=== PATIENT | male | born 1980 | race Caucasian/White ===

== ENCOUNTER 2016-09-29 23:28 | Emergency (ER) | payer SELFPAY ==
[2016-09-30 02:31] LABS: APPEARANCE CLEAR (CLEAR); BILIRUBIN NEGATIVE (NEGATIVE); COLOR YELLOW (YELLOW); GLUCOSE NEGATIVE (NEGATIVE); KETONE NEGATIVE (NEGATIVE); LEUKOCYTE ESTERASE NEGATIVE (NEGATIVE); NITRITE NEGATIVE (NEGATIVE); PROTEIN NEGATIVE (NEGATIVE); SPECIFIC GRAVITY 1.005 (1.005-1.020); UROBILINOGEN NORMAL (NORMAL)
== END 2016-09-30 02:15 | disposition home or self-care (01) ==
LOC: D.ER 23:28
PROVIDERS: Physician Assistant Medical
DX: S20.419A Abrasion of unspecified back wall of thorax, initial encounter (principal); S40.812A Abrasion of left upper arm, initial encounter; S50.312A Abrasion of left elbow, initial encounter; S90.812A Abrasion, left foot, initial encounter; S80.812A Abrasion, left lower leg, initial encounter; V89.2XXA Person injured in unspecified motor-vehicle accident, traffic, initial encounter; Y93.89 Activity, other specified; Y92.89 Other specified places as the place of occurrence of the external cause

== ENCOUNTER 2016-10-14 18:22 | Emergency (ER) | payer SELFPAY | END 2016-10-14 20:28 | disposition home or self-care (01) | LOC: D.ER 18:22 | DX: S51.012D Laceration without foreign body of left elbow, subsequent encounter (principal); X58.XXXD Exposure to other specified factors, subsequent encounter; Y92.89 Other specified places as the place of occurrence of the external cause; Z48.02 Encounter for removal of sutures ==